=== PATIENT | female | born 1985 | race Caucasian/White ===

== ENCOUNTER 2017-05-11 07:00 | Day surgery (SDC) | payer OTHER ==
--- NOTE | 2017-05-08 23:05 | PREOPHP ---
DATE OF ADMISSION: 05/11/2017 REASON FOR ADMISSION: The patient is coming on the 05/11/2017 for a tubal ligation. HISTORY OF PRESENT ILLNESS: This is a 31-year-old female, 3, para 3, last menstrual period in February 2017. The patient has come in due to willingness to have a pelviscopic tubal ligation. The patient had 3 vaginal deliveries and she has regular periods, and she does not want to have anymore children even if she has a new partner. The patient states she definitely would like to have a permanent procedure. The patient was advised and she was given counseling her about the possibility of remarriage and future wishing/willingness to have another child and she absolutely refuses that idea and insisting to have a tubal ligation. PAST MEDICAL HISTORY: Healthy. She have no major medical or surgical antecedents. ALLERGIES: SHE IS ALLERGIC TO PENICILLIN AND SULFA. MEDICATIONS: She is on blood pressure medication, and Celexa and Risperdal due to bipolar. SOCIAL HISTORY: She does smoke, half a pack a day, for the last 15 years. She drinks socially. She had a history of drug addiction and she has been clean for the last 3 years. FAMILY HISTORY: Hypertension, breast cancer. PHYSICAL EXAMINATION: GENERAL APPEARANCE: Good. VITAL SIGNS: Blood pressure 110/70. Pulse is 80. She weighs 200 pounds and she is 5 feet 6 inches. HEENT: Normal. NECK: Normal. BREASTS: Soft, nontender. No masses. CHEST: Clear. HEART: Normal sinus rhythm. BACK: Normal. ABDOMEN: Soft, nontender. No masses. GENITALIA: Normal external genitalia. Normal cervix. Uterus normal size. Adnexa negative. RECTAL: Examination normal. EXTREMITIES: Normal. DIAGNOSIS: Multiparity. PLAN: She has been given the option of doing a pelviscopic bilateral salpingectomy versus partial salpingectomy. The patient would like to take the whole tube out because she does not want the chance of an ectopic and would like to have the benefits of protection against ovarian cancer since her mother had breast cancer. The patient states, again, that if she remarries, she would not want to have more children and she could have options of adoption. The patient was advised of the possible risks and possible complications of the procedure with the alternatives and options. Written information was provided. She had no more questions and agreed to go ahead with the procedure with full understanding and no more questions. Dictated By: Tran Cook MD /[email or web address]/kim /Document#: [id number]
[2017-05-10 11:54] VITALS: BMI 32.3
[~2017-05-11] VITALS: Ht 167.6 cm; Wt 86.0 kg
[~2017-05-11 07:00] MED LIST: CLINDAMYCIN 900 MG/D5W (PMX) 50 ML IVPB SCH; DEXTROSE 5%-LR 1,000 ML IV SCH; DOXY100T20 PO; NORE-92 PO
[2017-05-11] MEDS ORDERED: CITA20TA11 PO (07:46)
[2017-05-11 07:49] VITALS: Ht 167.6 cm; Wt 86.0 kg
[2017-05-11 07:53] VITALS: BP 118/72; PULSE 75; RESP 20
[2017-05-11] MEDS ORDERED: RISP3TAB25 PO (07:54)
[2017-05-11] MEDS ORDERED: GLYCOPYRROLATE 0.4 MG INJ ONE (09:06)
[2017-05-11] MEDS ORDERED: ROCURONIUM 50 MG INJ ONE (09:06)
[2017-05-11] MEDS ORDERED: ROPIVACAINE 0.5 % 30 ML VIAL ONE (09:06)
[2017-05-11] MEDS ORDERED: METOCLOPRAMIDE 10 MG INJ ONE (09:06)
[2017-05-11] MEDS ORDERED: MIDAZOLAM 1 MG/ML 2 ML INJ ONE (09:06)
[2017-05-11] MEDS ORDERED: NEOSTIGMINE 3 MG/3 ML SYRINGE ONE (09:06)
[2017-05-11] MEDS ORDERED: PROPOFOL 20 ML ONE (09:06)
[2017-05-11] MEDS ORDERED: HYDROmorphONE 2 MG/ML SYG ONE (09:06)
[2017-05-11] MEDS ORDERED: CLINDAMYCIN 900 MG/D5W (PMX) 50 ML IVPB ONE (09:50)
[2017-05-11] MEDS ORDERED: KETOROLAC 30 MG INJ ONE (09:50)
[2017-05-11] MEDS ORDERED: DEXAMETHASONE 4 MG/ML 1 ML INJ ONE (09:59)
[2017-05-11] MEDS ORDERED: HYDROMORPHONE IV PRN (12:00)
[2017-05-11] MEDS ORDERED: KETOROLAC 30 MG INJ IV PRN (12:00)
[2017-05-11] MEDS ORDERED: HYDROmorphONE 0.4 MG IV PRN (12:00)
[2017-05-11] MEDS ORDERED: ACETAMINOPHEN PO PRN (12:00)
[2017-05-11] MEDS ORDERED: MEPERIDINE 25 MG INJ IV PRN (12:00)
[2017-05-11] MEDS ORDERED: OXYCODONE/ACETAMINOPHEN (5/325) 1 TAB PO PRN (12:00)
[2017-05-11] MEDS ORDERED: OXYCODONE PO PRN (12:00)
[2017-05-11] MEDS ORDERED: ONDANSETRON 4 MG INJ IV PRN ×2 (12:00)
[2017-05-11] MEDS ORDERED: DIPHENHYDRAMINE 25 MG INJ IV PRN (12:00)
--- NOTE | 2017-05-11 12:48 | OPR ---
DATE OF OPERATION: 05/11/2017 OPERATION PERFORMED: Pelviscopic bilateral salpingectomy. PREOPERATIVE DIAGNOSIS: Multiparity. POSTOPERATIVE DIAGNOSIS: Multiparity. SURGEON: Dr. Cook. ANESTHESIA: Dr. Goins. ANESTHESIA: General anesthesia. OPERATIVE PROCEDURE: The patient was given general anesthesia, placed in the lithotomy position. The abdomen, perineal vaginal area were prepped and draped and a [place] was inserted in the uterus. A Allison catheter was placed in the bladder and a small incision was made over the inferior edge of the umbilicus. The fascia was incised and the peritoneum was entered and a 10 mm scope was placed in. The CO2 was insufflated. A second trocar, and a third trocar were inserted suprapubically over the midline with a 5 mm trocar, and the other trocar was placed laterally to the rectus muscle 5 cm below the umbilical area. This was done with a 5 mm trocar for mobilization inside of the organ. The tubes and ovaries appeared to be normal. The uterus was normal. The ligature instrument with bipolar current was used to burn the mesosalpinx all the way from [id number], and incising the area underneath and going up the cornua end of the tube which was also cauterized and incised. The tube was removed after placing in the endobag and freeing the tube in the endobag. This was removed through the umbilical incision. This was done in both sides with no complications. The cavity was pretty dry and the stumps were dry. The procedure was finished by removing all the instruments, deflated of the abdomen and the abdomen closed with the #0 Vicryl for the fascia, #3-0 Monocryl for all the incisions, and Dermabond. The patient tolerated the procedure well and left the OR awake and stable. Sponge counts and instrument counts were correct. Intravenous antibiotics were given for prophylaxis. Dictated By: Tran Cook MD /[email or web address] /Document#: [id number]
[2017-05-11 13:24] VITALS: BP 117/84; PULSE 75; RESP 16
== END 2017-05-11 13:39 | disposition home or self-care (01) ==
LOC: SDS 07:00
PROVIDERS: ATTEND Obstetrics & Gynecology
DX: Z64.1 Problems related to multiparity (principal); I10 Essential (primary) hypertension
CPT/HCPCS: 58661; 88302; J1100; J1170; J1885; J2250; J2710; J2765; J2795; J7121; Z7512; Z7610